=== PATIENT | female | born 1940 | race Caucasian/White ===

== ENCOUNTER → 2016-08-23 | Outpatient (CLI) | payer OTHER ==
[~2016-08-23] MED LIST: ASCA500 PO; AZAT50TA17 PO; CALC-354 PO; LISI-461 PO; MULT-506 PO; URSO300C8 PO; VITA400C3 PO
== END | disposition home or self-care (01) ==
LOC: C.PAPS 14:16
PROVIDERS: ATTEND Obstetrics & Gynecology
DX: Z12.4 Encounter for screening for malignant neoplasm of cervix (principal)

== ENCOUNTER → 2016-09-20 | Outpatient (CLI) | payer OTHER ==
[2016-09-20 12:32] LABS: BASO % 1.7 %; BASO ABS # 0.07 K/uL (0-0.2); COMPLETE YES; EOS % 6.7 %; HEMATOCRIT 42.7 % (37-47); IG% 0.2 %; LYMPH % 18.8 %; LYMPH ABS # 0.78 K/uL (1.2-3.4); MEAN CORPUSCULAR HGB CONC 34.4 g/dl (32-36); MEAN PLATELET VOLUME 11.8 fL (7.4-10.4); MONO % 10.1 %; NEUT % 62.5 %; PLATELET COUNT 273 K/uL (130-400); RED BLOOD COUNT 4.45 M/uL (4.2-5.4); WHITE BLOOD COUNT 4.15 K/uL (4.8-10.8)
[2016-09-20 12:39] LABS: BLOOD UREA NITROGEN 14 mg/dl (7-18); CREATININE 0.82 mg/dl (0.60-1.20); GLUCOSE 102 mg/dl (70-99)
[2016-09-20 12:40] LABS: ALT/SGPT 34 U/L (12-78); BUN/CREATININE RATIO 16.6 (10-20); CALCIUM 9.4 mg/dl (8.5-10.1); CARBON DIOXIDE 26 mmol/L (21-32); CHLORIDE 104 mmol/L (98-107); CHOLESTEROL 214 mg/dl (0-200); POTASSIUM 4.5 mmol/L (3.5-5.1); SODIUM 141 mmol/L (136-145)
[2016-09-20 12:42] LABS: ALB/GLOB RATIO 0.9 (0.9-2); ALKALINE PHOSPHATASE 171 U/L (45-117); AST/SGOT 38 U/L (15-37); CHOLESTEROL/HDL RATIO 2.7; HDL CHOLESTEROL 80 mg/dl; LDL CHOLESTEROL CALCULATED 120 mg/dl; TRIGLYCERIDES 71 mg/dl (0-150); VERY LOW DENSITY LIPOPROT CALC 14 mg/dl
[2016-09-20 13:22] LABS: ESTIMATED AVERAGE GLUCOSE 100 mg/dl; HA1C FLAG Normal (Normal)
== END | disposition home or self-care (01) ==
LOC: C.LABBFT 07:45
PROVIDERS: ATTEND Internal Medicine
DX: R73.01 Impaired fasting glucose (principal)

== ENCOUNTER → 2017-04-08 | Outpatient (CLI) | payer OTHER ==
[2017-04-08 12:14] LABS: BASO % 0.6 %; BASO ABS # 0.03 K/uL (0-0.2); COMPLETE YES; EOS % 4.1 %; HEMATOCRIT 43.8 % (37-47); IG% 0.2 %; LYMPH ABS # 1.33 K/uL (1.2-3.4); MEAN CELL VOLUME 95.8 fL (80-100); MEAN CORPUSCULAR HEMOGLOBIN 33.3 pg (25-34); MEAN CORPUSCULAR HGB CONC 34.7 g/dl (32-36); MEAN PLATELET VOLUME 11.3 fL (7.4-10.4); NEUT % 59.1 %; PLATELET COUNT 273 K/uL (130-400); RED BLOOD COUNT 4.57 M/uL (4.2-5.4); WHITE BLOOD COUNT 5.12 K/uL (4.8-10.8)
[2017-04-08 12:37] LABS: ALT/SGPT 34 U/L (12-78); AST/SGOT 44 U/L (15-37); BLOOD UREA NITROGEN 17 mg/dl (7-18); BUN/CREATININE RATIO 21.1 (10-20); CALCIUM 9.4 mg/dl (8.5-10.1); CARBON DIOXIDE 28 mmol/L (21-32); CHLORIDE 104 mmol/L (98-107); CHOLESTEROL 185 mg/dl (0-200); CREATININE 0.81 mg/dl (0.60-1.20); GLUCOSE 103 mg/dl (70-99); POTASSIUM 4.4 mmol/L (3.5-5.1); SODIUM 138 mmol/L (136-145); TRIGLYCERIDES 76 mg/dl (0-150); VERY LOW DENSITY LIPOPROT CALC 15 mg/dl
[2017-04-08 12:39] LABS: ALB/GLOB RATIO 0.8 (0.9-2); ALKALINE PHOSPHATASE 255 U/L (45-117); CHOLESTEROL/HDL RATIO 2.8; HDL CHOLESTEROL 65 mg/dl; LDL CHOLESTEROL CALCULATED 105 mg/dl
[2017-04-08 12:42] LABS: ESTIMATED AVERAGE GLUCOSE 111 mg/dl; HA1C FLAG Normal (Normal)
== END | disposition home or self-care (01) ==
LOC: C.LABBFT 07:41
PROVIDERS: ATTEND Internal Medicine
DX: I10 Essential (primary) hypertension (principal); R73.01 Impaired fasting glucose; K74.3 Primary biliary cirrhosis

== ENCOUNTER → 2017-04-27 | Outpatient (CLI) | payer OTHER ==
--- NOTE | 2017-04-28 07:35 | DIAGNOSTIC IMAGING REPORT ---
MRCP CLINICAL HISTORY: Primary sclerosing cholangitis. Biliary cirrhosis. Evaluate for dominant stricture or worsening biliary ductal dilatation. COMPARISON STUDY: CT of the abdomen September 18, 2009. TECHNIQUE: Utilizing a 1.5 Fay magnet and dedicated coil, multiplanar, multi echo imaging of the abdomen was performed utilizing heavily T2 weighted pulsing sequences. No intravenous contrast was administered. FINDINGS: Several mildly enlarged upper abdominal lymph nodes are unchanged since CT of September 17, 2009. An index carla hepatis node shown image 11 measures 3 x 1.6 cm. No ascites is present. The liver is not overtly cirrhotic but there is suggestion of a subtle lace-like appearance of the liver. No hepatic lesions are identified although sensitivity is diminished on this unenhanced exam. The size of the spleen is normal. Unenhanced images of the adrenal glands, kidneys and pancreas are normal. The course and caliber of the main pancreatic duct is normal. The caliber of the common bile duct is normal, measuring 4 mm. There is mild smooth narrowing of the proximal right hepatic duct, just beyond the bifurcation. There is an equivocal 9 mm T2 hyperintense lesion shown on coronal contrast image 11 of 27. This may result in narrowing shown on the MRCP the sequences but is suboptimally assessed on this unenhanced exam. There is slight upstream biliary ductal dilatation. Multifocal areas of narrowing within the intrahepatic bile ducts suggest primary sclerosing cholangitis. No additional dominant strictures are identified. IMPRESSION: 1. Mild smooth narrowing of the proximal right hepatic duct, just distal to the bifurcation with minimal upstream ductal dilatation. Possible 9 mm lesion which could result in extrinsic narrowing. A contrast-enhanced MRI of the liver may be of benefit in further evaluation. 2. Subtle lace-like appearance of the liver which could indicate cirrhosis. 3. Stable mild upper abdominal lymphadenopathy since CT of September 18, 2009. 4. Multifocal narrowing within the intrahepatic bile ducts which suggests primary sclerosing cholangitis. Electronically signed by: Gab Morris M.D. 04/28/2017 7:33 AM Dictated Date/Time: 04/27/2017 6:33 PM
== END | disposition home or self-care (01) ==
LOC: C.MRI 17:29
PROVIDERS: ATTEND Internal Medicine Gastroenterology
DX: R94.5 Abnormal results of liver function studies (principal); K74.3 Primary biliary cirrhosis

== ENCOUNTER → 2017-05-30 | Day surgery (SDC) | payer OTHER ==
[2017-05-24 15:11] VITALS: Ht 154.9 cm; Wt 57.7 kg
[~2017-05-30] VITALS: Ht 154.9 cm; Wt 57.7 kg
[~2017-05-30] MED LIST changes: +500ML BSSPLUS 0.5ML EPI1:1000 IRRIG ONE; +ACETAMINOPHEN 325 MG TAB PO PRN; +ATROPINE SULFATE 0.1 MG/ML 5ML SYR IV PRN; +ATROPINE SULFATE 1% OP OINT PER APPLICATION CHARGE ONE; +BSS FLUSH ONE; +BUPIVACAINE HCL 0.75% 10 ML AMP/VIAL ONE; +CEFAZOLIN SOD 1 GM VIAL ONE; +DEXAMETHASONE SOD INJ 4 MG/ML VIAL ONE; +EpHEDrine SULFATE INJ 50 MG/ML AMP IV PRN; +EpINEphrine INJ 1MG/ML AMP 1 MG/ML AMP ONE; +FENTANYL CITRATE INJ 50 MCG/1 ML 2 ML VIAL ONE; +HYALURONIDASE HUMAN 150 UNIT/ML INJ ONE; +INDOCYANINE GREEN 25 MG/10 ML ONE; +LACTATED RINGER'S 1000ML 500 ML IV SCH; +LIDOCAINE HCL 2% 2 ML VIAL (20MG/ML) ONE; +MIDAZOLAM HCL 1 MG/ML 2ML VIAL ONE; +NEOMYCIN/POLYMYX/DEXAMETH OP OINT PER APP CHARGE ONE; +OCUCOAT 1 ML SOLN IO ONE; +ONDANSETRON INJ 2 MG/ML 2 ML VIAL ONE; +POVIDONE-IODINE OP SOLN (SURGERY CNTR CHARGING ONLY) ONE; +PROPARACAINE 0.5% OP SOLN PER DROP CHARGE OPL SCH; +PROPOFOL IV EMULSION 10 MG/ML 20 ML VIAL IV ONE; +TIMOLOL MALEATE 0.5% OP SOLN PER DROP CHARGE ONE; +TRIAMCINOLONE ACETONIDE OPHTH 40 MG/ML VIAL STERILE IO ONE
[2017-05-30] MEDS: PHENYLEPHRINE HCL 2.5% OP SOLN PER DROP CHARGE OPL SCH ×2 (07:41→07:50)
[2017-05-30] MEDS: TROPICAMIDE 1% OP SOLN PER DROP CHARGE OPL SCH ×2 (07:42→07:51)
--- NOTE | 2017-05-30 08:27 | History & Physical Bridge - SC ---
H&P Re-Evaluation Bridge Note: Pt has a macular pucker/epiretinal membrane left eye and is having vitrectomy left eye. I have examined the patient, reviewed the History & Physical and in the interval since the performance of the History & Physical I have noted the following changes of clinical significance: No changes noted
[2017-05-30 09:33] VITALS: TEMP 36.4
--- NOTE | 2017-05-30 09:35 | [facility] Operative Report ---
Operative Report Date of Service May 30, 2017. Operative Report PREOPERATIVE DIAGNOSIS: Vitreomacular traction syndrome with epiretinal membrane , left eye. ICD10: H43.822, H35.372 POSTOPERATIVE DIAGNOSIS: same. PROCEDURE: 1. Pars plana vitrectomy, 23 gauge. 2. Membrane peeling of the internal limiting membrane and overlying epiretinal membrane. 3. Injection of intravitreal Triescence 2mg. All to the left eye. CPT CODE: 03714 SURGEON: Lorenzo Blount D.O. COMPLICATIONS: None. ESTIMATED BLOOD LOSS: None. SPECIMENS: None. ANESTHESIA: Retrobulbar block and MAC. INDICATIONS FOR PROCEDURE: The patient has an epiretinal membrane that is visually significant. Vitrectomy surgery is indicated to decrease risk of vision loss and potentially improve vision. CONSENT: The risks, benefits and alternatives were discussed with the patient including but not limited to decreased visual acuity, failure to achieve desired results, loss of the eye, infection, pain, glaucoma, lens changes, retinal tears, retinal detachment, the need for more procedures, drooping of the eyelid, blindness, and double vision. The patient is aware of risks and consents to the surgery. Consent is signed and on the chart. OPERATION AND FINDINGS: The patient was brought to the operating room where the patient was identified by name, date, and medical record number. The surgical site was confirmed with the informed written consent. The patient was sedated by the anesthesiology team after which a 50:50 mixture of 2% lidocaine and 0.75% bupivacaine with hyaluronidase was administered in a standard retrobulbar fashion. A total of 4 ml was administered without difficulty. The patient was then prepped and draped in the usual sterile manner for retinal surgery. A wire lid speculum was placed and an Adrian 23-gauge trocar cannula system was employed. The inferior temporal trocar cannula was first placed in an angled fashion 3.75mm posterior to the surgical limbus and the infusion cannula was inserted into this cannula after which the intravitreal position was verified prior to turning the infusion on. Two more trocar cannulas were then inserted in an angled fashion, one in the superior temporal, and one in the superior nasal quadrant both 3.75mm posterior to the surgical limbus. A light pipe and vitrector were then introduced into the eye and the BIOM wide angle viewing system was brought into place. Standard core vitrectomy was performed and it was noted that the vitreous was firmly adherent to the optic nerve and macula. A posterior vitreous detachment was able to be achieved with intravitreal Triescence and the vitrector and soft tip. The vitreous was insured to be totally detached from the posterior pole with the aid of the vitrector. Next 0.05ml of indocyanine green was placed over the macular surface to stain the internal limiting membrane. This was washed from the eye after 10 seconds. At this point a flat contact lens was placed on the surface of the eye and a flex scraper and ILM forceps were used to gently peel the internal limiting membrane and any overlying membranes off of the macular surface without difficulty. At this point scleral depression was performed for 360 degrees and no retinal tears or detachments were noted. Triescence 2mg was injected. The trocar cannulas were then removed and found to be water tight. The intraocular pressure was found to be within normal limits by palpation and subconjunctival injections of Kefzol and dexamethasone were administered inferiorly and superiorly. The wire lid speculum was removed. Maxitrol was applied to the surface of the eye. A light patch and shield were taped over the surface of the eye and the patient left the Operating Room in stable condition having tolerated the procedure well. DISPOSITION: The patient has an appointment the following morning in the Ophthalmology Clinic. The patient is to call immediately if there are any problems overnight. I attest to the content of the Intraoperative Record and any orders documented therein. Any exceptions are noted below.
--- NOTE | 2017-05-30 09:35 | Discharge Instructions-SurgCtr ---
Discharge Instructions Date of Service May 30, 2017. Visit Reason for Visit: Left Eye Epiretinal Membrane Discharge Discharge Diagnosis / Problem: same Discharge Goals Goal(s): Improve function Activity Recommendations Activity Limitations: per Instructions/Follow-up section Anesthesia . Post Anesthesia Instructions: If you have had General Anesthesia or IV Sedation: * Do not drive today. * Resume driving when surgeon permits. * Do not make important decisions or sign legal documents today. * Call surgeon for: 1. Temperature elevations greater than 101 degrees F. 2. Uncontrollable pain. 3. Excessive bleeding. 4. Persistent nausea and vomiting. 5. Medication intolerance (nausea, vomiting or rash). * For nausea and vomiting use only clear liquids such as: tea, soda, bouillon until nausea subsides, then gradually increase diet as tolerated. * If you have any concerns or questions, call your surgeon's office. If physician is unavailable and it is an emergency, call 911 or go to the nearest emergency room. . Instructions / Follow-Up Instructions / Follow-Up * May take Tylenol if needed for discomfort. * Do NOT remove eye shield. * NO straining, heavy lifting (>15 pounds) or bending below waist. * Avoid getting water or soap directly into operative eye. * Do NOT rub eye. If you experience increasing eye pain not relieved by medication, please contact us immediately at [phone]. If you are unable to reach someone at the above number, call [phone] and ask to speak with the EYE DOCTOR SWING TENDER. Inform them that you are a Dr. Blount patient who had recent surgery. Diet Recommendations Home Diet: resume previous diet Procedures Procedures Performed: Left Eye 23 Gauge Vitrectomy Pending Studies Studies pending at discharge: no Medical Emergencies . Who to Call and When: Medical Emergencies: If at any time you feel your situation is an emergency, please call 911 immediately. . Non-Emergent Contact Non-Emergency issues call your: Tunnel Inspector . . "Provider Documentation" section prepared by Lorenzo Blount. .
--- NOTE | 2017-05-30 09:41 | Anesthesia Progress Nt - [facility] ---
Anesthesia Post Op Note Date & Time May 30, 2017 at 09:41 Vital Signs Pain Intensity: 0 Vital Signs Past 12 Hours Date Time Temp Pulse Resp B/P (MAP) Pulse Ox O2 Delivery O2 Flow Rate FiO2 05/30/17 07:32 36.4 79 18 148/83 (104) 97 Room Air Notes Mental Status: alert / awake / arousable, participated in evaluation Pt Amnestic to Procedure: Yes Nausea / Vomiting: adequately controlled Pain: adequately controlled Airway Patency, RR, SpO2: stable & adequate BP & HR: stable & adequate Hydration State: stable & adequate Anesthetic Complications: no major complications apparent
[2017-05-30 09:53] VITALS: BP 149/82; PULSE 65; O2SAT 98
== END | disposition home or self-care (01) ==
LOC: X.SURG 06:40
PROVIDERS: ATTEND Ophthalmology
DX: H43.822 Vitreomacular adhesion, left eye (principal); H35.372 Puckering of macula, left eye; I10 Essential (primary) hypertension; E78.00 Pure hypercholesterolemia, unspecified; Z98.51 Tubal ligation status; Z88.2 Allergy status to sulfonamides; Z98.890 Other specified postprocedural states; Z68.24 Body mass index [BMI] 24.0-24.9, adult; Z98.41 Cataract extraction status, right eye; Z98.42 Cataract extraction status, left eye; Z87.898 Personal history of other specified conditions; Z86.19 Personal history of other infectious and parasitic diseases; Z87.09 Personal history of other diseases of the respiratory system; Z81.8 Family history of other mental and behavioral disorders; Z82.49 Family history of ischemic heart disease and other diseases of the circulatory system; Z83.3 Family history of diabetes mellitus; Z80.3 Family history of malignant neoplasm of breast

== ENCOUNTER → 2017-06-22 | Outpatient (CLI) | payer OTHER ==
[~2017-06-22] MED LIST changes: -500ML BSSPLUS 0.5ML EPI1:1000 IRRIG ONE; -ACETAMINOPHEN 325 MG TAB PO PRN; -ATROPINE SULFATE 0.1 MG/ML 5ML SYR IV PRN; -ATROPINE SULFATE 1% OP OINT PER APPLICATION CHARGE ONE; -BSS FLUSH ONE; -BUPIVACAINE HCL 0.75% 10 ML AMP/VIAL ONE; -CEFAZOLIN SOD 1 GM VIAL ONE; -DEXAMETHASONE SOD INJ 4 MG/ML VIAL ONE; -EpHEDrine SULFATE INJ 50 MG/ML AMP IV PRN; -EpINEphrine INJ 1MG/ML AMP 1 MG/ML AMP ONE; -FENTANYL CITRATE INJ 50 MCG/1 ML 2 ML VIAL ONE; -HYALURONIDASE HUMAN 150 UNIT/ML INJ ONE; -INDOCYANINE GREEN 25 MG/10 ML ONE; -LACTATED RINGER'S 1000ML 500 ML IV SCH; -LIDOCAINE HCL 2% 2 ML VIAL (20MG/ML) ONE; -MIDAZOLAM HCL 1 MG/ML 2ML VIAL ONE; -NEOMYCIN/POLYMYX/DEXAMETH OP OINT PER APP CHARGE ONE; -OCUCOAT 1 ML SOLN IO ONE; -ONDANSETRON INJ 2 MG/ML 2 ML VIAL ONE; -POVIDONE-IODINE OP SOLN (SURGERY CNTR CHARGING ONLY) ONE; -PROPARACAINE 0.5% OP SOLN PER DROP CHARGE OPL SCH; -PROPOFOL IV EMULSION 10 MG/ML 20 ML VIAL IV ONE; -TIMOLOL MALEATE 0.5% OP SOLN PER DROP CHARGE ONE; -TRIAMCINOLONE ACETONIDE OPHTH 40 MG/ML VIAL STERILE IO ONE
--- NOTE | 2017-06-22 15:19 | MAMMOGRAPHY REPORT ---
BILATERAL DIGITAL SCREENING MAMMOGRAM TOMOSYNTHESIS WITH CAD: 06/22/2017 CLINICAL HISTORY: Routine screening. Patient has no complaints. TECHNIQUE: Breast tomosynthesis in addition to standard 2D mammography was performed. Current study was also evaluated with a Computer Aided Detection (CAD) system. COMPARISON: Comparison is made to exams dated: 06/21/2016 mammogram, 12/30/2015 mammogram, 12/30/2015 ultrasound, 07/01/2015 ultrasound, 07/01/2015 mammogram, and 06/18/2015 mammogram - [facility]. BREAST COMPOSITION: The tissue of both breasts is heterogeneously dense, which may obscure small mas ses. FINDINGS: No obvious new mass, architectural distortion or cluster of suspicious microcalcifications is seen. There are mild vascular calcifications and a few benign rim calcifications in the breasts . IMPRESSION: ACR BI-RADS CATEGORY 1: NEGATIVE There is no mammographic evidence of malignancy. A 1 year screening mammogram is recommended. The pa tient will receive written notification of the results. Approximately 10% of breast cancers are not detected with mammography. A negative mammographic report should not delay biopsy if a clinically suggestive mass is present. Barb Humphrey M.D. ay/:06/22/2017 12:31:02 Senior Investment Manager: Lucina JOHNSON(Missy)(Sint[place]), [facility] letter sent: Normal 1/2 BI-RADS Code: ACR BI-RADS Category 1: Negative
== END | disposition home or self-care (01) ==
LOC: C.MAMM 08:26
PROVIDERS: ATTEND Obstetrics & Gynecology
DX: Z12.31 Encounter for screening mammogram for malignant neoplasm of breast (principal)

== ENCOUNTER → 2017-10-24 | Outpatient (CLI) | payer OTHER ==
[2017-10-24 12:40] LABS: BASO % 0.8 %; BASO ABS # 0.04 K/uL (0-0.2); EOS % 6.8 %; EOS ABS # 0.34 K/uL (0-0.5); HEMATOCRIT 43.7 % (37-47); HEMOGLOBIN 14.8 g/dL (12.0-16.0); IG# 0.01 K/uL (0.00-0.02); LYMPH % 19.8 %; LYMPH ABS # 0.99 K/uL (1.2-3.4); MEAN CELL VOLUME 94.2 fL (80-100); MEAN CORPUSCULAR HEMOGLOBIN 31.9 pg (25-34); MEAN CORPUSCULAR HGB CONC 33.9 g/dl (32-36); MEAN PLATELET VOLUME 11.4 fL (7.4-10.4); MONO % 10.2 %; MONO ABS # 0.51 K/uL (0.11-0.59); NEUT % 62.2 %; PLATELET COUNT 270 K/uL (130-400); RED CELL DISTRIBUTION WIDTH CV 13.9 % (11.5-14.5); RED CELL DISTRIBUTION WIDTH SD 47.6 fL (36.4-46.3); WHITE BLOOD COUNT 4.99 K/uL (4.8-10.8)
[2017-10-24 13:14] LABS: HEMOGLOBIN A1C 5.4 % (4.5-5.6)
[2017-10-24 13:56] LABS: ALBUMIN 3.4 gm/dl (3.4-5.0); ALKALINE PHOSPHATASE 272 U/L (45-117); ALT/SGPT 46 U/L (12-78); AST/SGOT 53 U/L (15-37); BLOOD UREA NITROGEN 20 mg/dl (7-18); CALCIUM 9.2 mg/dl (8.5-10.1); CARBON DIOXIDE 26 mmol/L (21-32); CREATININE 0.84 mg/dl (0.60-1.20); GLUCOSE 100 mg/dl (70-99); POTASSIUM 4.6 mmol/L (3.5-5.1); SODIUM 137 mmol/L (136-145); TOTAL PROTEIN 7.5 gm/dl (6.4-8.2)
[2017-10-24 13:57] LABS: CHOLESTEROL 219 mg/dl (0-200); LDL CHOLESTEROL CALCULATED 141 mg/dl
== END | disposition home or self-care (01) ==
LOC: C.LABBFT 07:45
PROVIDERS: ATTEND Internal Medicine
DX: R73.01 Impaired fasting glucose (principal); I10 Essential (primary) hypertension; K74.3 Primary biliary cirrhosis

== ENCOUNTER 2017-12-18 05:27 | Emergency (ER) | payer OTHER ==
[~2017-12-18] VITALS: Ht 154.9 cm; Wt 54.0 kg
[2017-12-18 05:36] VITALS: TEMP 36.7; Ht 154.9 cm; Wt 54.0 kg
[2017-12-18] MEDS ORDERED: OPTIRAY 320 IV PRN (06:00)
[2017-12-18 06:15] LABS: ISTAT CREATININE 0.8 mg/dl (0.6-1.3); ISTAT IONIZED CALCIUM 1.18 mmol/l (1.12-1.32); ISTAT POTASSIUM 3.7 mEq/L (3.3-5.0)
[2017-12-18 06:45] LABS: BASO % 0.6 %; BASO ABS # 0.04 K/uL (0-0.2); EOS % 2.3 %; EOS ABS # 0.15 K/uL (0-0.5); HEMATOCRIT 44.1 % (37-47); HEMOGLOBIN 15.4 g/dL (12.0-16.0); IG# 0.01 K/uL (0.00-0.02); LYMPH % 12.1 %; LYMPH ABS # 0.78 K/uL (1.2-3.4); MEAN CELL VOLUME 92.1 fL (80-100); MEAN CORPUSCULAR HEMOGLOBIN 32.2 pg (25-34); MEAN CORPUSCULAR HGB CONC 34.9 g/dl (32-36); MEAN PLATELET VOLUME 10.9 fL (7.4-10.4); MONO % 5.5 %; MONO ABS # 0.35 K/uL (0.11-0.59); NEUT % 79.3 %; NEUT ABS # 5.09 K/uL (1.4-6.5); PLATELET COUNT 294 K/uL (130-400); RED CELL DISTRIBUTION WIDTH CV 13.8 % (11.5-14.5); RED CELL DISTRIBUTION WIDTH SD 46.8 fL (36.4-46.3); WHITE BLOOD COUNT 6.42 K/uL (4.8-10.8)
[2017-12-18 07:04] LABS: ALT/SGPT 37 U/L (12-78); AST/SGOT 57 U/L (15-37); BLOOD UREA NITROGEN 18 mg/dl (7-18); CALCIUM 9.9 mg/dl (8.5-10.1); CARBON DIOXIDE 27 mmol/L (21-32); CREATININE 0.91 mg/dl (0.60-1.20); GLUCOSE 138 mg/dl (70-99); POTASSIUM 3.7 mmol/L (3.5-5.1); SODIUM 140 mmol/L (136-145)
[2017-12-18 07:06] LABS: ALKALINE PHOSPHATASE 248 U/L (45-117); TOTAL PROTEIN 8.4 gm/dl (6.4-8.2)
--- NOTE | 2017-12-18 07:19 | EMERGENCY ROOM VISIT NOTE ---
History Report prepared by Dorcas: Conor Dietrich Under the Supervision of: Dr. Dannielle Mendoza D.O. First contact with patient: 05:42 Chief Complaint: ABDOMINAL PAIN Stated Complaint: SEVERE STOMACH PAIN, SORE TO THE TOUCH History of Present Illness The patient is a 77 year old female who presents to the Emergency Room with complaints of persistent abdominal pain that began at 0230 this morning, 3 hours ago. The patient states that she felt completely fine when she went to bed at 1100 last night, 7 hours ago. She notes that her pain is mostly localized to the center of her belly. She denies any associated nausea, vomiting , or urinary irregularities. The patient add that she was planting villavicencio and pressure washing her deck/porch Tuesday-Tuesday of last week, several days ago. Source of History: patient Onset: 3 days ago Position: abdomen Timing: other (Persistent) Associated Symptoms: No nausea, No vomiting, No urinary symptoms Review of Systems See HPI for pertinent positives & negatives. A total of 10 systems reviewed and were otherwise negative. Past Medical & Surgical Medical Problems: (1) HTN (hypertension) HTN (hypertension) Family History Cancer Diabetes mellitus Hypertension Lung disease Social History Smoking Status: Never Smoker Housing Status: lives alone Occupation Status: retired Current/Historical Medications Scheduled Ascorbic Acid (Vitamin C), 1,000 MG PO QAM Azathioprine (Imuran), 1.5 TAB PO QAM Calcium Carbonate-Cholecalcife (Caltrate 600+D), 1 TAB PO BID Lisinopril (Zestril), 10 MG PO QAM Multivitamin (Multivitamin), 1 TAB PO QAM Ursodiol (Ursodiol), 1 TAB PO TID Vitamin E (Vitamin E 400 Iu), 400 INTER.UNIT PO QAM Allergies Coded Allergies: Adhesives (Verified Allergy, Unknown, SKIN IRRITATION, 12/18/17) CAN TOLERATE FOR SHORT PERIOD TIME Sulfa Antibiotics (Verified Allergy, Unknown, "SULFA DRUGS": NAUSEA, ) Uncoded Allergies: PLASTICS (Adverse Reaction, Unknown, EYE SWELLING, 05/11/16) Physical Exam Vital Signs Date Time Temp Pulse Resp B/P (MAP) Pulse Ox O2 Delivery O2 Flow Rate FiO2 12/18/17 06:51 67 20 157/78 97 Room Air 12/18/17 05:36 36.7 109 20 138/83 96 Room Air Physical Exam HEENT: Head - normocephalic and atraumatic Pupils are equal, round, and reactive to light. Extraocular eye muscles are intact, and sclera are anicteric. Nose - moist nasal mucosa without discharge. Mouth - moist buccal mucosa. Oropharynx is nonerythematous and there is no tonsillar exudate or edema noted. Neck: Supple; no JVD, nuchal rigidity, or cervical lymphadenopathy. Heart: Regular rate and rhythm. There is a normal S1 and S2 with no murmurs, clicks, or gallops appreciated. Lungs: Clear to auscultation bilaterally with no wheezes, rales, or rhonchi. Abdomen: Soft, there is periumbilical pain with palpation, nondistended, with good bowel sounds. There are no palpable pulsatile masses or hepatosplenomegaly. There is no guarding, rigidity, or rebound noted. Extremities: No evidence of cyanosis, clubbing, or edema. There are easily palpable peripheral pulses. Skin: warm and dry with good turgor and no rashes. Medical Decision & Procedures ER Provider Diagnostic Interpretation: Radiology results as stated below per my review and the radiologist's interpretation: CT ABDOMEN & PELVIS with Contrast: There are dilated small bowel segments with air-fluid levels. A discrete transition point is not identified. Favor ileus over partial obstructive process. A component of enteritis is not definitely excluded. No small bowel wall thickening or perienteric inflammatory changes appreciated. Diverticulosis. Porion of the colon underdistended limiting evaluation for wall thickening. No diverticulitis appreciated. Although the distal colon is decompressed, overall, moderate colonic distention. No evidence for appendicitis. Radiologist: Lorenzo Bacon M.D. Laboratory Results 12/18/17 05:56 Red Blood Count 4.79, Mean Corpuscular Volume 92.1, Mean Corpuscular Hemoglobin 32.2, Mean Corpuscular Hemoglobin Concent 34.9, Mean Platelet Volume 10.9, Neutrophils (%) (Auto) 79.3, Lymphocytes (%) (Auto) 12.1, Monocytes (%) (Auto) 5.5, Eosinophils (%) (Auto) 2.3, Basophils (%) (Auto) 0.6, Neutrophils # (Auto) 5.09, Lymphocytes # (Auto) 0.78, Monocytes # (Auto) 0.35, Eosinophils # (Auto) 0.15, Basophils # (Auto) 0.04 12/18/17 05:56 Test 12/18/17 05:56 12/18/17 06:03 12/18/17 06:50 White Blood Count 6.42 K/uL (4.8-10.8) Red Blood Count 4.79 M/uL (4.2-5.4) Hemoglobin 15.4 g/dL (12.0-16.0) Hematocrit 44.1 % (37-47) Mean Corpuscular Volume 92.1 fL (80-100) Mean Corpuscular Hemoglobin 32.2 pg (25-34) Mean Corpuscular Hemoglobin Concent 34.9 g/dl (32-36) Platelet Count 294 K/uL (130-400) Mean Platelet Volume 10.9 fL (7.4-10.4) Neutrophils (%) (Auto) 79.3 % Lymphocytes (%) (Auto) 12.1 % Monocytes (%) (Auto) 5.5 % Eosinophils (%) (Auto) 2.3 % Basophils (%) (Auto) 0.6 % Neutrophils # (Auto) 5.09 K/uL (1.4-6.5) Lymphocytes # (Auto) 0.78 K/uL (1.2-3.4) Monocytes # (Auto) 0.35 K/uL (0.11-0.59) Eosinophils # (Auto) 0.15 K/uL (0-0.5) Basophils # (Auto) 0.04 K/uL (0-0.2) RDW Standard Deviation 46.8 fL (36.4-46.3) RDW Coefficient of Variation 13.8 % (11.5-14.5) Immature Granulocyte % (Auto) 0.2 % Immature Granulocyte # (Auto) 0.01 K/uL (0.00-0.02) Est Creatinine Clear Calc Drug Dose 39.0 ml/min Estimated GFR () 70.5 Estimated GFR (Non- 60.9 BUN/Creatinine Ratio 19.4 (10-20) Calcium Level 9.9 mg/dl (8.5-10.1) Total Bilirubin 0.3 mg/dl (0.2-1) Direct Bilirubin < 0.1 mg/dl (0-0.2) Aspartate Amino Transf (AST/SGOT) 57 U/L (15-37) Alanine Aminotransferase (ALT/SGPT) 37 U/L (12-78) Alkaline Phosphatase 248 U/L (45-117) Total Protein 8.4 gm/dl (6.4-8.2) Albumin 4.0 gm/dl (3.4-5.0) Bedside Hemoglobin 15.0 g/dl (12.0-16.0) Bedside Hematocrit 44 % (37-47) Bedside Sodium 141 mEq/L (135-144) Bedside Potassium 3.7 mEq/L (3.3-5.0) Bedside Chloride 102 mEq/L (101-112) Bedside Total CO2 27 mEq/l (24-31) Anion Gap 17.0 mmol/L (16-25) Bedside Blood Urea Nitrogen 20 mg/dl (7-18) Bedside Creatinine 0.8 mg/dl (0.6-1.3) Bedside Glucose (other) 139 mg/dl (70-99) Bedside Ionized Calcium (Roya) 1.18 mmol/l (1.12-1.32) Urine Color YELLOW Urine Appearance CLEAR (CLEAR) Urine pH 6.0 (4.5-7.5) Urine Specific Bac[place] > 1.045 (1.000-1.030) Urine Protein NEG (NEG) Urine Glucose (UA) NEG (NEG) Urine Ketones NEG (NEG) Urine Occult Blood TRACE (NEG) Urine Nitrite NEG (NEG) Urine Bilirubin NEG (NEG) Urine Urobilinogen NEG (NEG) Urine Leukocyte Esterase MODERATE (NEG) Urine WBC (Auto) 5-10 /hpf (0-5) Urine RBC (Auto) 0-4 /hpf (0-4) Urine Hyaline Casts (Auto) 1-5 /lpf (0-5) Urine Epithelial Cells (Auto) >30 /lpf (0-5) Urine Bacteria (Auto) NEG (NEG) Laboratory results per my review. ED Course 0543: Past medical records reviewed. The patient was evaluated in room B3B. A complete history and physical exam was performed. An IV lock was initiated and labs were drawn as above. She went for CT scan of the abdomen/pelvis 0639: The patient's pain has seemed to resolve at this time. She will provide a urine. 0705: I discussed findings and results with her. She verbalized agreement of the treatment plan. She remains symptom-free at this time. The patient was discharged home. Medical Decision The patient is a 77 year old female who presents to the Emergency Room with complaints of persistent abdominal pain Differential Diagnosis includes; appendicitis, diverticulitis, colitis, cholecystitis, and cystitis. Laboratory results were reviewed and show; no leukocyte esterase, stable hemoglobin and hematocrit, normal renal function, normal LFTs with the exception of the Alk-Phos of 248, AST of 57, Glucose of 138. Urinalysis was reviewed and shows; trace blood, 5-10 WBCs, and moderate leukocyte esterase. This is a 77-year-old female who presents to the emergency department with periumbilical abdominal pain since 2:[address] scan shows some dilated loops of small bowel but no obvious transition point to suggest a bowel obstruction. The patient has had no previous surgeries on the abdomen except for a tubal ligation many many years ago. Her symptoms have resolved while she is here in the emergency department. She has no leukocytosis or other significant lab abnormalities. The patient is urine does have moderate leukocyte esterase but the patient has no urinary symptoms. This will be sent for culture. The patient was instructed to return to the emergency department if she has worsening abdominal pain or develops a fever. Otherwise, the patient can follow -up with her PCP for persistent pain. Medication Reconcilliation Current Medication List: was personally reviewed by me Blood Pressure Screening Patient's blood pressure: Normal blood pressure Impression Primary Impression: Periumbilical abdominal pain Scribe Attestation The scribe's documentation has been prepared under my direction and personally reviewed by me in its entirety. I confirm that the note above accurately reflects all work, treatment, procedures, and medical decision making performed by me. Departure Information Dispostion Home / Self-Care Referrals Leander Cain M.D. (PCP) Forms Call Back Authorization, HOME CARE DOCUMENTATION FORM, IMPORTANT VISIT INFORMATION Patient Instructions My [facility] [employer] Additional Instructions Rest Take a bland diet over next 24 hours Return to the ER for worsening symptoms Follow up with PCP for any persistent symptoms
[2017-12-18 07:34] VITALS: BP 138/76; PULSE 76; O2SAT 98
--- NOTE | 2017-12-18 09:22 | DIAGNOSTIC IMAGING REPORT ---
ABDOMEN AND PELVIS CT WITH IV CONTRAST CT DOSE: 249.25 mGy.cm HISTORY: Generalized abdominal pain. TECHNIQUE: Multiaxial CT images of the abdomen and pelvis were performed following the use of intravenous contrast. A dose lowering technique was utilized adhering to the principles of ALARA. COMPARISON STUDY: Abdomen CT 09/18/2009. FINDINGS: Bibasilar linear densities favor subsegmental atelectasis. No pneumoperitoneum. No pneumatosis. Degenerative changes throughout the lumbar spine. Stable mildly enlarged epicardial lymph node measuring 1.3 cm. Therefore, this is likely benign. The liver, gallbladder, pancreas, spleen, adrenal glands, and kidneys are unremarkable. No hydronephrosis. No retroperitoneal lymphadenopathy. The bladder, uterus, and adnexa are unremarkable. Trace pelvic free fluid. A few colonic diverticula. No evidence for diverticulitis. Moderate well-formed stool seen throughout the colon. Small fat-containing right inguinal hernia. A few prominent gas-filled fluid-filled loops of small bowel measuring up to 2.3 cm. No transition point to suggest an obstruction. Questionable thickening of the distal sigmoid colon is likely due to underdistention. IMPRESSION: 1. A few prominent loops of gas and fluid-filled small bowel within the abdomen. No transition point to suggest an obstruction. Therefore, this could represent a mild ileus or a component of an enteritis. 2. Moderate well-formed stool seen throughout the colon. 3. No bowel wall thickening identified. Questionable thickening of the distal sigmoid colon is likely due to underdistention. A low-grade colitis is considered less likely. 4. Normal appendix. Electronically signed by: Kade Ross M.D. 12/18/2017 9:20 AM Dictated Date/Time: 12/18/2017 9:12 AM
== END 2017-12-18 07:34 | disposition home or self-care (01) ==
LOC: C.EDB 05:28
DX: R10.33 Periumbilical pain (principal); I10 Essential (primary) hypertension; Z98.51 Tubal ligation status; Z91.09 Other allergy status, other than to drugs and biological substances; Z88.1 Allergy status to other antibiotic agents; Z83.3 Family history of diabetes mellitus; Z82.49 Family history of ischemic heart disease and other diseases of the circulatory system; Z79.899 Other long term (current) drug therapy